=== PATIENT | male | born 1995 | race Caucasian/White ===

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

== ENCOUNTER 2017-08-24 19:25 | Emergency (ER) | payer BC ==
[2017-08-24 19:39] VITALS: RESP 18
--- NOTE | 2017-08-24 20:02 | ED ---
General Adult HPI - General Chief complaint: GI Bleed Stated complaint: blood in stool Time Seen by Provider: 08/24/17 19:30 Source: patient, family, RN notes reviewed Mode of arrival: ambulatory Limitations: no limitations - History of Present Illness Initial comments: This is a 22-year-old male presents emergency Department with complaint of rectal bleeding. Patient states bright red blood he has a bowel movement. Patient states his been ongoing intermittently for urine. Patient states usually lasts about 3 days and goes away. Patient came in today because now it is associated with some left lower quadrant pain as well as occasional rectal pain especially with bowel movements. Patient denies any dysuria hematuria urinary freaky. Patient denies any bruising or petechiae. Patient denies any upper abdominal pain. Patient denies any nausea vomiting or diarrhea. - Related Data Home Medications Medication Instructions Recorded Confirmed No Known Home Medications [No 08/24/17 08/24/17 Known Home Medications] Allergies Allergy/AdvReac Type Severity Reaction Status Date / Time Penicillins Allergy Rash/Hives Verified 08/24/17 20:08 Review of Systems ROS Statement: Those systems with pertinent positive or pertinent negative responses have been documented in the HPI. ROS Other: All systems not noted in ROS Statement are negative. Past Medical History Past Medical History: No Reported History History of Any Multi-Drug Resistant Organisms: None Reported Past Surgical History: No Surgical Hx Reported Past Psychological History: No Psychological Hx Reported Smoking Status: Never smoker Past Alcohol Use History: Rare Past Drug Use History: None Reported General Exam - General Exam Comments Initial Comments: GENERAL: Patient is well-developed and well-nourished. Patient is nontoxic and well- hydrated and is in no acute distress. ENT: Neck is soft and supple. No significant lymphadenopathy is noted. Oropharynx is clear. Moist mucous membranes. Neck has full range of motion without eliciting any pain. EYES: The sclera were anicteric and conjunctiva were pink and moist. Extraocular movements were intact and pupils were equal round and reactive to light. Eyelids were unremarkable. PULMONARY: Unlabored respirations. Good breath sounds bilaterally. No audible rales rhonchi or wheezing was noted. CARDIOVASCULAR: There is a regular rate and rhythm without any murmurs gallops or rubs. ABDOMEN: Soft and nontender with normal bowel sounds. No palpable organomegaly was noted. There is no palpable pulsatile mass. SKIN: Skin is clear with no lesions or rashes and otherwise unremarkable. RECTAL: Unremarkable no fissures no hemorrhoids NEUROLOGIC: Patient is alert and oriented x3. Cranial nerves II through XII are grossly intact. Motor and sensory are also intact. Normal speech, volume and content. Symmetrical smile. MUSCULOSKELETAL: Normal extremities with adequate strength and full range of motion. LYMPHATICS: No significant lymphadenopathy is noted PSYCHIATRIC: Normal psychiatric evaluation. Normal interpersonal interactions appears functionally intact in deals appropriately with others. No signs of depression. No signs of anxiety. Limitations: no limitations Course Vital Signs 08/24/17 08/24/17 19:33 20:42 Temperature 98.6 F Pulse Rate 75 87 Respiratory 18 18 Rate Blood Pressure 129/61 135/60 O2 Sat by Pulse 100 97 Oximetry Medical Decision Making - Medical Decision Making I spoke with Dr. Erickson and he will be following up the patient this Tuesday. - Lab Data Result diagrams: 08/24/17 20:02 08/24/17 20:02 Lab Results 08/24/17 08/24/17 08/24/17 Range/Units 20:02 20:02 20:02 WBC 8.3 (4.0-11.0) k/uL RBC 4.61 (4.30-5.90) m/uL Hgb 13.4 (13.0-17.5) gm/dL Hct 39.2 (39.0-53.0) % MCV 84.9 (80.0-100.0) fL MCH 29.1 (25.0-35.0) pg MCHC 34.3 (31.0-37.0) g/dL RDW 12.9 (11.5-15.5) % Plt Count 224 (150-450) k/uL Neutrophils % 48 % Lymphocytes % 39 % Monocytes % 7 % Eosinophils % 4 % Basophils % 1 % Neutrophils # 4.0 (1.3-7.7) k/uL Lymphocytes # 3.2 (1.0-4.8) k/uL Monocytes # 0.6 (0-1.0) k/uL Eosinophils # 0.3 (0-0.7) k/uL Basophils # 0.0 (0-0.2) k/uL PT 11.2 (9.0-12.0) sec INR 1.2 H (<1.2) APTT 25.8 (22.0-30.0) sec Sodium 143 (137-145) mmol/L Potassium 4.0 (3.5-5.1) mmol/L Chloride 103 (98-107) mmol/L Carbon Dioxide 28 (22-30) mmol/L Anion Gap 12 mmol/L BUN 14 (9-20) mg/dL Creatinine 0.90 (0.66-1.25) mg/dL Est GFR (CKD-EPI)AfAm >90 (>60 ml/min/1.73 sqM) Est GFR (CKD-EPI)NonAf >90 (>60 ml/min/1.73 sqM) Glucose 93 (74-99) mg/dL Calcium 10.2 (8.4-10.2) mg/dL Total Bilirubin 0.6 (0.2-1.3) mg/dL AST 28 (17-59) U/L ALT 18 L (21-72) U/L Alkaline Phosphatase 54 (38-126) U/L Total Protein 8.4 H (6.3-8.2) g/dL Albumin 5.0 (3.5-5.0) g/dL Disposition Clinical Impression: Rectal bleeding Disposition: HOME SELF-CARE Instructions: Gastrointestinal Bleeding (ED) Referrals: None,Stated [Primary Care Provider] - 1-2 days Time of Disposition: 20:49
[2017-08-24 20:12] LABS: Basophils % (A) 1 %; Eosinophils # (A) 0.3 k/uL (0-0.7); Eosinophils % (A) 4 %; HCT 39.2 % (39.0-53.0); HGB 13.4 gm/dL (13.0-17.5); Lymphocytes # (A) 3.2 k/uL (1.0-4.8); Lymphocytes % (A) 39 %; MCH 29.1 pg (25.0-35.0); MCHC 34.3 g/dL (31.0-37.0); MCV 84.9 fL (80.0-100.0); Mean Platelet Volume 8.5; Monocytes # (A) 0.6 k/uL (0-1.0); Monocytes % (A) 7 %; Neutrophils % (A) 48 %; Platelet Count 224 k/uL (150-450); RBC 4.61 m/uL (4.30-5.90); RDW 12.9 % (11.5-15.5); WBC 8.3 k/uL (4.0-11.0)
[2017-08-24 20:20] LABS: INR 1.2 (<1.2); Partial Thromboplastin Time 25.8 sec (22.0-30.0); Prothrombin Time 11.2 sec (9.0-12.0)
[2017-08-24 20:32] LABS: ALT 18 U/L (21-72); AST 28 U/L (17-59); Alkaline Phosphatase 54 U/L (38-126); Anion Gap 12 mmol/L; Blood Urea Nitrogen 14 mg/dL (9-20); Calcium 10.2 mg/dL (8.4-10.2); Carbon Dioxide 28 mmol/L (22-30); Chloride 103 mmol/L (98-107); Glucose 93 mg/dL (74-99); Sodium 143 mmol/L (137-145); Total Bilirubin 0.6 mg/dL (0.2-1.3); Total Protein 8.4 g/dL (6.3-8.2)
[2017-08-24 20:42] VITALS: BP 135/60; PULSE 87
--- NOTE | 2017-08-24 21:00 | XR ---
EXAMINATION TYPE: XR KUB DATE OF EXAM: 08/24/2017 8:13 PM CLINICAL HISTORY: Blood in stool, abdominal pain for a few days. TECHNIQUE: Two Upright KUB images of the abdomen are obtained. COMPARISON: None. FINDINGS: Scattered gas is seen in non-distended stomach and small bowel loops. Gas and fecal materia l is seen in non-distended colon and rectum. There is no visceromegaly, pneumoperitoneum, or abnormal calcification appreciated. The lung bases are clear and the osseous structures are intact. IMPRESSION: Overall nonobstructive bowel gas pattern.
[2017-08-24 21:13] VITALS: TEMP 97.8
== END 2017-08-24 21:12 | disposition home or self-care (01) ==
LOC: EC 19:25
DX: K62.5 Hemorrhage of anus and rectum (principal); Z88.0 Allergy status to penicillin
CPT/HCPCS: 36415; 74018; 80053; 85025; 85610; 85730; 99285

== ENCOUNTER 2017-10-17 11:32 | Day surgery (SDC) | payer BC ==
[~2017-10-17 11:32] MED LIST: LACTATED RINGERS 1,000 ML IV SCH
[2017-10-17 13:16] VITALS: RESP 16; TEMP 97.4
[2017-10-17] MEDS ORDERED: LIDOCAINE 1% 20 ML VIAL (10MG/ML) FOR IV START INTRADERMA ONE (13:16)
[2017-10-17] MEDS ORDERED: LIDOCAINE 1% INJ 10MG/ML (20 ML MDV) ONE (14:52)
[2017-10-17] MEDS ORDERED: PROPOFOL 10 MG/ML 20 ML VIAL IV ONE (14:52)
--- NOTE | 2017-10-17 14:56 | P.GSHP ---
History of Present Illness H&P Date: 10/17/17 Chief Complaint: GI bleed This is a 22-year-old male referred from Dr. Erickson. Patient's had issues with rectal bleeding. He presents today for colonoscopy. Past Medical History Past Medical History: No Reported History History of Any Multi-Drug Resistant Organisms: None Reported Past Surgical History: No Surgical Hx Reported Past Psychological History: No Psychological Hx Reported Smoking Status: Never smoker Past Alcohol Use History: Rare Past Drug Use History: None Reported Medications and Allergies Home Medications Medication Instructions Recorded Confirmed Type No Known Home Medications [No 08/24/17 10/17/17 History Known Home Medications] Allergies Allergy/AdvReac Type Severity Reaction Status Date / Time Penicillins Allergy Rash/Hives Verified 10/17/17 13:06 Surgical - Exam Vital Signs Temp Pulse Resp BP Pulse Ox 97.4 F L 83 16 125/60 98 10/17/17 13:14 10/17/17 13:14 10/17/17 13:14 10/17/17 13:14 10/17/17 13:14 - General well developed, no distress - Eyes PERRL, normal ocular movement - ENT normal pinna - Neck no masses - Respiratory normal expansion - Cardiovascular Rhythm: regular - Abdomen Abdomen: soft, non tender Assessment and Plan Assessment: GI bleed. We'll perform colonoscopy.
--- NOTE | 2017-10-17 15:10 | P.OP ---
Date of Procedure: 10/17/17 Preoperative Diagnosis: GI bleed Postoperative Diagnosis: Mild internal and external hemorrhoids Procedure(s) Performed: Colonoscopy Anesthesia: MAC Surgeon: Austen Rodriguez Pathology: none sent Condition: stable Disposition: PACU Description of Procedure: The patient's placed on the endoscopy table lateral position. He received IV sedation. Digital rectal exam was performed which revealed mild internal and external hemorrhoids. The flexible colonoscope was then placed the patient's anus passed throughout the entire colon. The ileocecal valve was visualized. The cecum, ascending and transverse colon appeared normal. Scope was brought back the descending and sigmoid colon and this was normal. Scope was then brought back the rectum and this appeared normal. The scope was withdrawn through the anus and minimal internal and external hemorrhoids were noted.
[2017-10-17 15:35] VITALS: BP 106/56; PULSE 79
--- NOTE | 2017-10-20 05:26 | CDI ---
Date: 10/20/17 CDS/Black Top Machine Operator Name: Essence Nam Phone: If any questions, call Gianna Gomez [facility] at [phone] Patient Name: Yovani Ram Admit Date: 10/17/17 Discharge Date: 10/17/17 ATTENTION: The [facility] Coding Staff appreciate your assistance in clarifying documentation. Please respond to the clarification below the line at the bottom and electronically sign. The [facility] Coding staff will review the response and follow-up if needed. Please note: Queries are made part of the Legal Health Record. If you have any questions, please contact the [facility]. Dear Dr. Rodriguez Please provide clarification on the diagnosis of GI bleed. Please clarify the relationship, if any, with the findings Thank you for your kind consideration. _ Internal and external hemorrhoids can cause GI bleed. MTDD
== END 2017-10-17 16:11 | disposition home or self-care (01) ==
LOC: ORWHC2ENDO 11:32
PROVIDERS: ATTEND Surgery
DX: K92.2 Gastrointestinal hemorrhage, unspecified (principal); K64.8 Other hemorrhoids; K64.4 Residual hemorrhoidal skin tags; Z88.0 Allergy status to penicillin
CPT/HCPCS: 45378; J2001; J2704

== ENCOUNTER 2018-01-09 21:43 | Emergency (ER) | payer BC ==
--- NOTE | 2018-01-09 22:47 | ED ---
General Adult HPI - General Chief complaint: Skin/Abscess/Foreign Body Stated complaint: Bug Bite Time Seen by Provider: 01/09/18 21:47 Source: patient, family, RN notes reviewed Mode of arrival: ambulatory Limitations: no limitations - History of Present Illness Initial comments: Patient is a 22-year-old male presented to the emergency room today to with a chief complaint of possible bug bite to left hand. He states that he noticed yesterday. Woke up this morning with low but more swollen. States over last hours streaking coming up the left arm. Patient does admit that he's been highly sensitive to insect bites in the past. Patient denies any other complaints or symptoms. Patient denies any recent fever, chills, shortness of breath, chest pain, back pain, abdominal pain, nausea or vomiting, numbness or tingling, dysuria or hematuria, constipation or diarrhea, headaches or visual changes, or any other complaints. - Related Data Previous Rx's Medication Instructions Recorded Sulfamethox-Tmp 800-160Mg [Bactrim 1 tab PO Q12HR #20 tab 01/09/18 DS 800-160 mg] Allergies Allergy/AdvReac Type Severity Reaction Status Date / Time Penicillins Allergy Rash/Hives Verified 01/09/18 21:52 Review of Systems ROS Statement: Those systems with pertinent positive or pertinent negative responses have been documented in the HPI. ROS Other: All systems not noted in ROS Statement are negative. Past Medical History Past Medical History: No Reported History History of Any Multi-Drug Resistant Organisms: None Reported Past Surgical History: No Surgical Hx Reported Additional Past Surgical History / Comment(s): finger surgery Past Psychological History: No Psychological Hx Reported Smoking Status: Never smoker Past Alcohol Use History: None Reported, Rare Past Drug Use History: None Reported General Exam - General Exam Comments Initial Comments: General: The patient is awake and alert, in no distress, and does not appear acutely ill. Eye: Pupils are equal, round and reactive to light, extra-ocular movements are intact. No nystagmus. There is normal conjunctiva bilaterally. No signs of icterus. Ears, nose, mouth and throat: There are moist mucous membranes and no oral lesions. Neck: The neck is supple, there is no tenderness or JVD. Musculoskeletal: Normal ROM, no tenderness. Strength 5/5. Sensation intact. Pulses equal bilaterally 2+. Neurological: A&O x 3. CN II-XII intact, There are no obvious motor or sensory deficits. Coordination appears grossly intact. Speech is normal. Skin: Patient does have small abscess to the base of the left thumb measuring approximately centimeter across. There is a white spot centrally. There is mild fluctuance. There is some lymphangitic streaking going up the left arm. Psychiatric: Cooperative, appropriate mood & affect, normal judgment. Limitations: no limitations Course Vital Signs 01/09/18 01/09/18 21:52 22:49 Temperature 99.4 F Pulse Rate 78 Respiratory 18 16 Rate Blood Pressure 132/64 O2 Sat by Pulse 99 Oximetry Procedures - Procedures Initial comment: Procedure: Incision and drainage The skin overlying the abscess was prepped with Betadine, and a 18-gauge needle was used to make small incision. Some purulent material was then extracted from the lesion. Gauze dressing placed on top, The patient tolerated the procedure well. Medical Decision Making - Medical Decision Making Patient been informed reasons for return to emergency room if there is increased streaking, redness or pain or fever. Patient given starter pack of Bactrim. The emergency room be continued on this advised close follow-up use warm compresses to the area. Disposition Clinical Impression: Abscess Disposition: HOME SELF-CARE Condition: Good Instructions: Abscess (ED) Additional Instructions: Please use warm compresses to the affected area as discussed. Please continue antibiotics. Follow-up family doctor over the next 2 days if symptoms not improved or return here to the emergency room for any other concerns. Prescriptions: Sulfamethox-Tmp 800-160Mg [Bactrim DS 800-160 mg] 1 tab PO Q12HR #20 tab Is patient prescribed a controlled substance at d/c from ED?: No Referrals: Frantz Erickson DO [Primary Care Provider] - 1-2 days Time of Disposition: 22:58
[2018-01-09 22:51] VITALS: RESP 16
[2018-01-09] MEDS ORDERED: SULFAMETH-TMP DS STARTER PACK 2 TAB BTL PO STA (22:57)
[2018-01-09 23:12] VITALS: BP 106/59; PULSE 77; TEMP 99.1
== END 2018-01-09 23:13 | disposition home or self-care (01) ==
LOC: EC 21:43
DX: L02.512 Cutaneous abscess of left hand (principal); Z88.0 Allergy status to penicillin
CPT/HCPCS: 10060; 99282